=== PATIENT | female | born 1945 | race Caucasian/White ===

== ENCOUNTER 2023-04-28 16:13 | Emergency (ER) | payer MEDICARE, OTHER ==
[2023-04-28 16:41] VITALS: BP 116/59
--- NOTE | 2023-04-28 17:21 | ED Physician Documentation ---
PD HPI URI - Stated complaint Stated Complaint: TIRED,CONGESTED, C+ - Chief complaint Chief Complaint: Heent - History obtained from History obtained from: Patient - History of Present Illness Timing - onset: How many days ago (4) Timing duration: Days (4) Timing details: Gradual onset Pain level max: 0 Pain level now: 0 Associated symptoms: Nasal congestion, Rhinorrhea, Dry cough. No: Fever Contributing factors: Sick contact, Travel. No: Immunocompromised, COPD / asthma - Additional information Additional information: Patient is a 77-year-old female who states that she has been sick for the past 4 days. Recently returned from home from [place]. tested positive for COVID today. She tested herself and is positive for COVID as well. She is fully vaccinated and boosted. No significant medical issues. No difficulty breathing. No fevers. Nothing makes it better or worse. She states she is feeling quite a bit better than she has over the past few days. Review of Systems Cardiac: denies: Chest pain / pressure, Palpitations Respiratory: denies: Dyspnea, Wheezing GI: denies: Vomiting, Diarrhea PD PAST MEDICAL HISTORY - Past Medical History Past Medical History: Yes Cardiovascular: High cholesterol GI: GERD - Present Medications Home Medications: Ambulatory Orders Medication Instructions Recorded Confirmed Fluticasone 220 Mcg [Flovent] 2 puffs INH BID 04/28/23 04/28/23 Pantoprazole [Protonix] 40 mg PO DAILY 04/28/23 04/28/23 Rosuvastatin Calcium [Crestor] 40 mg PO DAILY PM 04/28/23 04/28/23 - Allergies Allergies/Adverse Reactions: Allergies Allergy/AdvReac Type Severity Reaction Status Date / Time No Known Drug Allergies Allergy Verified 04/28/23 16:41 - Social History Does the pt smoke?: No Does the pt have substance abuse?: No PD ED PE NORMAL - Vitals Vital signs reviewed: Yes - General General: Alert and oriented X 3, No acute distress - HEENT HEENT: PERRL, Moist mucous membranes, Pharynx benign - Neck Neck: Supple, no meningeal sign - Cardiac Cardiac: RRR, Strong equal pulses - Respiratory Respiratory: No respiratory distress, Clear bilaterally - Abdomen Abdomen: Soft, Non tender, Non distended - Derm Derm: Warm and dry - Extremities Extremities: No edema - Neuro Neuro: Alert and oriented X 3 - Psych Psych: Normal mood, Normal affect Results - Vitals Vitals: Vital Signs - 24 hr 04/28/23 16:38 Temperature 35.7 C L Heart Rate 75 Respiratory 20 Rate Blood Pressure 116/59 L O2 Saturation 95 Oxygen O2 Source Room air PD Medical Decision Making - ED course Complexity details: considered differential, d/w patient ED course: Patient is well-appearing, nontoxic. Afebrile. No hypoxia. No respiratory distress. She is feeling better after being ill for 4 days. Do not feel that antiviral therapy would help her. We will continue supportive care and follow- up with her doctor for further care as needed. Patient counseled regarding signs and symptoms for which I believe and urgent re-evaluation would be necessary. Patient with good understanding of and agreement to plan and is comfortable going home at this time This document was made in part using voice recognition software. While efforts are made to proofread this document, sound alike and grammatical errors may occur. Departure - Departure Disposition: 01 Home, Self Care Clinical Impression: COVID Condition: Good Instructions: ED Viral Syndrome Follow-Up: your,doctor as needed [Other] Comments: Please make sure you are drinking plenty of fluids and resting. Please return if you worsen. Forms: PCP List Discharge Date/Time: 04/28/23 17:31
== END 2023-04-28 17:31 | disposition home or self-care (01) ==
LOC: ED 16:13
DX: U07.1 COVID-19 (principal); E78.00 Pure hypercholesterolemia, unspecified
CPT/HCPCS: 99281; 99283